=== PATIENT | male | born 1965 | race Caucasian/White ===

== ENCOUNTER 2017-03-17 11:06 | Emergency (ER) | payer OTHER ==
[2017-03-17 11:42] LABS: BASO % 0.3 % (0.2-1.2); EOS # 0.2 10_X3_uL (0.0-0.5); EOS % 3.8 % (0.8-7.0); GRAN # 3.7 10_X3_uL (1.8-5.4); HEMATOCRIT 46.3 % (40-51); HEMOGLOBIN 16.2 g/dL (13.7-17.5); LYMPH # 1.1 10_X3_uL (1.3-3.6); LYMPH % 17.7 % (21.8-53.1); MEAN CORPUSCULAR HEMOGLOBIN 28.4 pg (27.0-33.0); MEAN CORPUSCULAR VOLUME 81.1 fL (79-92); MEAN PLATELET VOLUME 10.6 fl (7.5-11.5); MONO # 1.3 10_X3_uL (0.3-0.8); MONO % 20.2 % (5.3-12.2); PLATELET COUNT 181 x10_3/uL (163-337); RED BLOOD COUNT 5.71 x10_6/uL (4.6-6.1); RED CELL DISTRIBUTION WIDTH 14.1 % (11.6-14.4); WHITE BLOOD COUNT 6.4 x10_3/uL (4.2-9.1)
[2017-03-17 11:58] LABS: ALBUMIN 4.4 gm/dL (3.4-5.0); ALKALINE PHOSPHATASE 73 U/L (50-136); ALT/SGPT 25 U/L (7.53-40.17); AMYLASE 47 U/L (15.62-74.58); AST/SGOT 18 U/L (6.66-35.34); BILIRUBIN,TOTAL 0.48 mg/dL (0.0-1.0); BLOOD UREA NITROGEN 14 mg/dL (7-18); CALCIUM 8.9 mg/dL (8.7-10.7); CARBON DIOXIDE 21 mmol/L (21-32); CREATININE 0.9 mg/dL (0.6-1.3); GLUCOSE,RANDOM 118 mg/dL (70-99); LIPASE 42 U/L (6.75-60.75); SODIUM 135 mmol/L (136-145); TOTAL PROTEIN 7.3 gm/dL (6.4-8.2)
== END 2017-03-17 14:04 | disposition home or self-care (01) ==
LOC: ER 11:06
PROVIDERS: General Practice
DX: J84.9 Interstitial pulmonary disease, unspecified (principal); J44.9 Chronic obstructive pulmonary disease, unspecified; J45.909 Unspecified asthma, uncomplicated; K76.0 Fatty (change of) liver, not elsewhere classified; R19.7 Diarrhea, unspecified; I10 Essential (primary) hypertension; Z88.1 Allergy status to other antibiotic agents; Z79.899 Other long term (current) drug therapy
CPT/HCPCS: 36415; 71020; 80053; 82150; 83690; 85025; 86308; 99284-25